=== PATIENT | female | born 1985 | race Caucasian/White ===

== ENCOUNTER 2017-12-11 07:00 | Inpatient (IN) ==
[2017-12-11] MEDS ORDERED: CALCIUM CARBONATE Chewable 500mg TABLET PO PRN ×2 (07:12→21:05)
[2017-12-11] MEDS ORDERED: OXYTOCIN DRIP 30 UNIT/500 ML ML IV PRN (07:12)
[2017-12-11] MEDS ORDERED: METHYLERGONOVINE 0.2 MG/ML INJECTION IM PRN (07:12)
[2017-12-11] MEDS ORDERED: LIDOCAINE 1% (10mg/ml) 2mL INJ PF SDV ID PRN (07:12)
[2017-12-11] MEDS ORDERED: MAG-AL + SIM ORAL LIQUID 30ml PO PRN ×2 (07:12→21:05)
[2017-12-11] MEDS ORDERED: CARBOPROST 250 MCG/ML INJECTION IM PRN (07:12)
[2017-12-11] MEDS ORDERED: ACETAMINOPHEN 500 MG TABLET PO PRN ×2 (07:12→21:05)
[2017-12-11] MEDS: LR 1,000 ML IV PRN ×2 (07:38→19:53)
[2017-12-11 07:58] VITALS: BMI 24.0
[2017-12-11] MEDS: D5LR 1,000 ML IV PRN ×2 (08:00→18:02)
[2017-12-11] MEDS ORDERED: ONDANSETRON 4 MG/2 ML INJECTION IVP PRN (11:54)
[2017-12-11] MEDS ORDERED: NALOXONE 0.4 MG/ML INJECTION IVP PRN (11:54)
[2017-12-11] MEDS ORDERED: ROPIVACAINE 1% 10MG/ML INJ 200 MG, SUFentanil 50 MCG in NS 100 ML EPI PRN (11:54)
[2017-12-11] MEDS ORDERED: DiphenhydrAMINE 50 MG/ML INJECTION IVP PRN (11:54)
--- NOTE | 2017-12-11 11:54 | Anesthesia Preoperative Report ---
Anesthesia Epidural/Spinal Rec - Date and Time Date: 12/11/17 Preoperative Diagnosis: Procedure: Labor Epidural Plan: Epidural - Vital Signs Vital Signs: Temperature 98.0 F 12/11/17 07:58 Pulse Rate 81 12/11/17 07:58 Respiratory Rate 16 12/11/17 07:58 Blood Pressure 117/89 12/11/17 07:58 Pulse Oximetry 96 12/11/17 07:58 /Para: P:1 - Medictaions & Allergies Inpatient Medications: Current Medications Acetaminophen (Tylenol) 500 - 1,000 mg PO Q4H PRN PRN Reason: Pain Al Hydroxide/Mg Hydroxide (Maalox Plus) 30 ml PO Q3H PRN PRN Reason: Indigestion Calcium Carbonate (Tums) 500 - 1,000 mg PO Q2H PRN PRN Reason: Indigestion Carboprost Tromethamine (Hemabate) 250 mcg IM O PRN PRN Reason: .Downtime Dextrose/Lactated Ringer's (Dextrose 5%-Lactated Ringers) 1,000 mls @ 125 mls/ hr IV .Q8H PRN PRN Reason: Labor Oxytocin (Pitocin Drip) 30 unit in 500 mls @ 2 mls/hr IV .Q24H PRN; Protocol PRN Reason: Induction/Augmentation Lactated Ringer's (Lactated Ringers) 1,000 mls @ 999 mls/hr IV .Q1H1M PRN Lidocaine HCl (Xylocaine-Mpf 1% Vial) 0.2 mg ID O PRN PRN Reason: IV Start Methylergonovine Maleate (Methergine) 0.2 mg IM O PRN Misoprostol (Cytotec) 800 mcg TN ONCE PRN Allergies/Adverse Reactions: Allergies Allergy/AdvReac Type Severity Reaction Status Date / Time NKDA Allergy Unknown Uncoded 12/26/16 11:06 - Home Medications Home Medications: Home Medications Medication Instructions Recorded Confirmed Type Levothyroxine Sodium [Synthroid] 1 tab PO ACB #0 tab 05/06/15 History - Medical History Cardiovascular: Reports: Hypertension (Pre-Eclampsia in prior 2014) Neuro/Musculoskeletal: Reports: Headaches Renal/Endocrine: Reports: Thyroid Disease (Synthroid for hypothyrhoid) Other History: Reports: Now - Surgical History GI Surgery/Treatments: Reports: Cholecystectomy Musculoskeletal Surgery/Tx: Reports: Orthopedic Surgery (ACL Bilateral repair), Other (ORIF left wrist) Reproductive Surgery/Treatment: DENIES: Section - Social History Smoking Status: Never smoker Second Hand Exposure: No Substance Use Type: does not use Alcohol Intake Frequency: does not drink Hx Chewing Tobacco Use: No - Pertinent Findings Lab Data: CBC and BMP 12/11/17 07:36 12/11/17 07:36 BMP 12/11/17 07:36 Sodium 138 Potassium 4.1 Chloride 107 Carbon Dioxide 20 L BUN 11.0 Creatinine 0.6 L Glucose 104 Calcium 8.9 Liver Function 12/11/17 Range/Units 07:36 Total Bilirubin 0.40 (0.20-1.30) MG/DL AST 26 (14-36) U/L ALT 15 (1-35) U/L Alkaline Phosphatase 161 H (38-126) U/L Albumin 3.8 (3.5-5.0) g/dL EKG Rhythm: Normal Sinus Rhythm - Physical Exam Respiratory Exam: lungs clear Cardiovascular Exam: regular rate and rhythm, no murmur - Airway Assessment Mallampati Score: I TMD: 3 Fingerbreadths Neck Extension: good Overall Assessment: no airway concerns - ASA ASA Score: 2 - Discussion Discussion: Discussed risks/options/alternatives of anesthesia and questions answered. Patient consents. Nursing pain assessment noted. Anesthesia Discussion: spouse Attestation Statement: Prior to the delivery of any anesthetic medication, I examined the patient, developed the plan, obtained the patient's consent and discussed the risk and benefits of the procedure with the patient/guardian.
[2017-12-11] MEDS ORDERED: HYDROCORTISONE 2.5% CREAM 30gm RECTALLY PRN (21:05)
[2017-12-11] MEDS ORDERED: HYDROCODONE/APAP 5mg/325mg TABLET PO PRN (21:05)
[2017-12-11] MEDS ORDERED: DiphenhydrAMINE 25 MG CAPSULE PO PRN (21:05)
--- NOTE | 2017-12-11 21:33 | Labor and Delivery Note ---
DATE OF DELIVERY 12/11/2017 NARRATIVE Ms. Escudero progressed well in first stage of labor. She began to push with excellent effort at the complete and +2 station. She pushed for about four contractions, delivering the head in the OA presentation. Baby was bulb suctioned on the perineum. There was no nuchal cord. With a further push baby was delivered in total. Baby was then further bulb suctioned and placed on mother's abdomen for care by the nurses. After a little over two minutes the cord was soft and flat. It was doubly clamped and then cut by the baby's father. This is a liveborn female with Apgars of 8/9. Her name is Melina Corral. She has not yet been weighed as she is still [id number] contact. After a few moments the placenta delivered spontaneously intact. It had a normal configuration and normal-appearing three-vessel cord. There was a first- degree midline laceration that was repaired with a [id number] suture of 2- 0 Vicryl. Total blood loss was approximately 200 mL. At the time of this dictation mother and baby are doing well. SHAHBAZ
[2017-12-11] MEDS: IBUPROFEN 800 MG TABLET PO SCH (23:13)
[2017-12-12] MEDS ORDERED: PRENATAL VITAMIN TABLET PO SCH (09:00)
[2017-12-12] MEDS ORDERED: DOCUSATE CALCIUM 240 MG CAPSULE PO SCH (09:00)
[2017-12-12] MEDS: IBUPROFEN 800 MG TABLET PO SCH ×3 (09:05→18:03)
[2017-12-12 20:59] VITALS: RESP 18; TEMP 98.1; O2SAT 99
[2017-12-12 21:06] VITALS: BP 132/77; PULSE 74
== END 2017-12-12 21:45 | disposition home or self-care (01) | DRG 775 ==
LOC: MC 07:02
PROVIDERS: ADMIT Obstetrics & Gynecology; ATTEND Obstetrics & Gynecology